=== PATIENT | female | born 1925 | race Caucasian/White ===

== ENCOUNTER 2016-05-19 11:02 | Emergency (ER) | payer OTHER, MEDICARE ==
[2016-05-19 11:16] VITALS: RESP 18; O2SAT 92
--- NOTE | 2016-05-19 11:54 | EDPHY ---
H & P Time Seen by Provider: 05/19/16 11:03 HPI/ROS: CHIEF COMPLAINT: left breast bruise HISTORY OF PRESENT ILLNESS: 89-year-old female presents to the emergency department by ambulance from her [facility] with a bruise to her left breast. Patient reports she does not regularly look at her breasts, she was sitting down to go to the bathroom and lifted up her nightgown noticed in the mirror across from her bruising to her left breast. Patient reports she does sleep on her right side and back, she denies trauma, no numbness or tingling to her arms , no shortness of breath or chest pain. Patient reports she bruises easily, she takes Pradaxa and 81 mg of aspirin daily. Patient has a pacemaker and has atrial fibrillation. Patient reports no pain, has no complaints. Smoking Status: Never smoked Physical Exam: Physical Exam Gen: Alert and Oriented, NAD HEENT: PERRL, moist mucous membranes NECK: no meningismus CV: Regular rate, irregular rhythm PULM: CTAB, no wheezes ABDOMEN: soft, non tender to palpation, BS present, abdominal distention normal per patient and fdc BACK: No CVA tenderness NEURO: Neurologically grossly intact EXTREMITIES: normal appearing SKIN: left breast with ecchymosis just below nipple and down to where breast meets chest wall, 3cm x 5cm area. Non tender, no fluctuance, no swelling, no break in skin. PSYCH: answers questions appropriately. Constitutional: Initial Vital Signs Temperature (C) 36.4 C 05/19/16 11:05 Heart Rate 70 05/19/16 11:05 Respiratory Rate 18 05/19/16 11:05 Blood Pressure 119/68 05/19/16 11:05 O2 Sat (%) 92 05/19/16 11:05 O2 Delivery Mode Room Air Allergies/Adverse Reactions: No Known Allergies Allergy (Verified 05/19/16 11:13) Home Medications: Medication Instructions Recorded Ascorbic Acid [Vitamin C 500 mg 500 mg PO DAILY 04/17/13 (*)] Aspirin EC [Aspirin EC 81 mg (*)] 81 mg PO Q2D 04/17/13 Calcium Carbonate [CALCIUM 1,000 mg PO BID 04/17/13 CARBONATE] Dabigatran Etexilate Mesyl 150 mg PO BID 04/17/13 [Pradaxa 150 MG (*)] Docusate Sodium [Colace 100 MG (*)] 100 mg PO DAILY 04/17/13 Furosemide [Lasix 20 MG (*)] 20 mg PO DAILY 04/17/13 Ketotifen Fumarate [Zaditor] 1 drop EACHEYE BID 04/17/13 Linaclotide [Linzess] 145 mcg PO DAILYAC 04/17/13 Magnesium Oxide 250 mg PO DAILY 04/17/13 Multivitamins [Multivitamin (*)] 1 each PO DAILY 04/17/13 metFORMIN HCL [Glucophage 500 mg 500 mg PO BIDMEAL 04/17/13 (*)] Cholecalciferol Vit D3 [Vitamin D3 1,000 units PO DAILY 12/11/13 (*)] Clobetasol 0.05% [Temovate Cream] 1 esha TP BID 12/11/13 DILTIAZEM HCL [DILTIAZEM 24HR ER] 240 mg PO DAILY 12/11/13 Digoxin [Lanoxin 0.25 mg] 0.25 mg PO DAILY 12/11/13 Lisinopril [Zestril 2.5 mg (*)] 2.5 mg PO DAILY 12/11/13 Loratadine [Claritin 10 mg] 10 mg PO DAILY 12/11/13 Triamcinolone Acetonide [Nasacort] 2 spray NS DAILY PRN 12/11/13 Albuterol [Proventil Neb] 3 ml IH Q2 PRN #0 deyvial 12/21/13 Furosemide [Lasix 20 MG (*)] 20 mg PO DAILY #0 tab 12/21/13 Insulin Glargine [Lantus 100 8 units SC HS #0 ml 12/21/13 UNITS/ML (*)] Insulin Lispro [humALOG LISPRO 100 4 unit SC DAILY@0800 #0 unit 12/21/13 units/ml (*)] Insulin Lispro [humALOG LISPRO 100 5 unit SC DAILY@1200 #0 unit 12/21/13 units/ml (*)] Insulin Lispro [humALOG LISPRO 100 5 unit SC DAILY@1800 #0 unit 12/21/13 units/ml (*)] Ipratropium/Albuterol [Duoneb (*)] 3 ml IH Q6 #0 deyvial 12/21/13 Dabigatran Etexilate Mesyl 150 mg PO BID 05/19/16 [Pradaxa 150 MG (*)] MDM/Departure - [facility] ED Course/Re-evaluation: Patient abdominal distention, she reports this is normal for her, it is nontender to palpation, when contacting the fdc, they report that this is normal for her since her admission to the [facility] in 2012. She has no complaints. Patient will be discharged with a diagnosis of contusion to left breast. I am not concerned for cellulitis, infection, mass. This appears to be a few days old as there is some green color to the perimeter of the bruise indicating this could be a few days old. She is nontender, no fluctuance, warmth, she is afebrile. Patient is comfortable with this plan. She has been given return precautions. - Depart Disposition: Home, Routine, Self-Care Clinical Impression: Bruise of breast Condition: Good Instructions: Contusion in Adults (ED) Additional Instructions: Ice to your breast several times per day for 10 minutes. Follow up with your primary care doctor on Saturday for re-evaluation. Return to the Emergency Department for any pain, fevers, worsening symptoms. Referrals: Patient,NotPresent [Primary Care Provider] - As per Instructions
[2016-05-19 13:00] VITALS: BP 118/59; PULSE 80; TEMP 98.1
== END 2016-05-19 13:00 | disposition home or self-care (01) ==
LOC: EDUNIT#
DX: R58 Hemorrhage, not elsewhere classified (principal); Z79.4 Long term (current) use of insulin; Z79.82 Long term (current) use of aspirin

== ENCOUNTER 2016-10-05 18:53 | Emergency (ER) | payer OTHER, MEDICARE ==
--- NOTE | 2016-10-05 18:53 | EDPHY ---
H & P Time Seen by Provider: 10/05/16 18:53 HPI/ROS: CHIEF COMPLAINT: Evaluation after a fall HISTORY OF PRESENT ILLNESS: Patient caught her foot on a rug and fell landing on sitting position on the rug at her living facility. She is on Pradaxa and was transported for evaluation. She does not have a headache but she has a little bit of pain. No loss of consciousness and extremity or hip pain. Did not have syncope. Remembers the event. No weakness or numbness in arms or legs. REVIEW OF SYSTEMS: Eye: no change in vision ENT: no sore throat Cardiac: no chest pain or syncope Pulmonary: no cough or SOB Abdomen: no vomiting, diarrhea, abdominal pain Musculoskeletal: HPI, no back pain Skin: no rash Neuro: no headache Constitutional: no fever : no urinary symptoms A comprehensive 10 point review of systems is otherwise negative aside from elements mentioned in the history of present illness. PAST MEDICAL HISTORY: Includes coronary artery disease, stroke, atrial fibrillation, colon cancer, diabetes, hypertension, hypercholesterolemia, pacemaker. Social history: Lives at [facility] in assisted living General Appearance: Alert and conversant, cooperative. Eyes: No scleral icterus. ENT, Mouth: Normal mucous membranes. Respiratory: Normal respiratory effort, breath sounds equal, lungs are clear to auscultation. Cardiovascular: Regular rate and rhythm. Gastrointestinal: Abdomen is soft and non tender. Neurological: Alert and oriented x3. Normally conversant. Face symmetric, normal movement and sensation in all extremities. Skin: Warm and dry, no rashes. Musculoskeletal: No peripheral edema and no joint swelling. Slight right-sided lower neck pain but no thoracic or lumbar spine tenderness. No hip pain with rotation or axial loading. No other extremity tenderness. Psychiatric: Not agitated. Emergency Department course/MDM: Plan for head and cervical spine CT, discharge if negative. 2013: CT head and neck per [place] shows no acute traumatic injury. Patient cleared clinically at this time. Constitutional: Initial Vital Signs Temperature (C) 36.6 C 10/05/16 19:04 Heart Rate 76 10/05/16 19:04 Respiratory Rate 18 10/05/16 19:04 Blood Pressure 126/61 H 10/05/16 19:04 O2 Sat (%) 92 10/05/16 19:04 O2 Delivery Mode Room Air Allergies/Adverse Reactions: No Known Allergies Allergy (Verified 05/19/16 11:13) Home Medications: Medication Instructions Recorded Ascorbic Acid [Vitamin C 500 mg 500 mg PO DAILY 04/17/13 (*)] Aspirin EC [Aspirin EC 81 mg (*)] 81 mg PO Q2D 04/17/13 Calcium Carbonate [CALCIUM 1,000 mg PO BID 04/17/13 CARBONATE] Dabigatran Etexilate Mesyl 150 mg PO BID 04/17/13 [Pradaxa 150 MG (*)] Docusate Sodium [Colace 100 MG (*)] 100 mg PO DAILY 04/17/13 Furosemide [Lasix 20 MG (*)] 20 mg PO DAILY 04/17/13 Ketotifen Fumarate [Zaditor] 1 drop EACHEYE BID 04/17/13 Linaclotide [Linzess] 145 mcg PO DAILYAC 04/17/13 Magnesium Oxide 250 mg PO DAILY 04/17/13 Multivitamins [Multivitamin (*)] 1 each PO DAILY 04/17/13 metFORMIN HCL [Glucophage 500 mg 500 mg PO BIDMEAL 04/17/13 (*)] Cholecalciferol Vit D3 [Vitamin D3 1,000 units PO DAILY 12/11/13 (*)] Clobetasol 0.05% [Temovate Cream] 1 esha TP BID 12/11/13 DILTIAZEM HCL [DILTIAZEM 24HR ER] 240 mg PO DAILY 12/11/13 Digoxin [Lanoxin 0.25 mg] 0.25 mg PO DAILY 12/11/13 Lisinopril [Zestril 2.5 mg (*)] 2.5 mg PO DAILY 12/11/13 Loratadine [Claritin 10 mg] 10 mg PO DAILY 12/11/13 Triamcinolone Acetonide [Nasacort] 2 spray NS DAILY PRN 12/11/13 Albuterol [Proventil Neb] 3 ml IH Q2 PRN #0 deyvial 12/21/13 Furosemide [Lasix 20 MG (*)] 20 mg PO DAILY #0 tab 12/21/13 Insulin Glargine [Lantus 100 8 units SC HS #0 ml 12/21/13 UNITS/ML (*)] Insulin Lispro [humALOG LISPRO 100 4 unit SC DAILY@0800 #0 unit 12/21/13 units/ml (*)] Insulin Lispro [humALOG LISPRO 100 5 unit SC DAILY@1200 #0 unit 12/21/13 units/ml (*)] Insulin Lispro [humALOG LISPRO 100 5 unit SC DAILY@1800 #0 unit 12/21/13 units/ml (*)] Ipratropium/Albuterol [Duoneb (*)] 3 ml IH Q6 #0 deyvial 12/21/13 Dabigatran Etexilate Mesyl 150 mg PO BID 05/19/16 [Pradaxa 150 MG (*)] Medical Decision Making - Diagnostics Imaging Results: Imaging Impressions Head CT 10/05/16 19:08 Impression: 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 2. Negative for intracranial hemorrhage. Report telephoned to Dr. Daryl Britt at 2000 hours. Departure - Departure Disposition: Home, Routine, Self-Care Clinical Impression: Neck strain Qualifiers: Encounter type: initial encounter Qualified Code(s): S16.1XXA - Strain of muscle, fascia and tendon at neck level, initial encounter Condition: Good Instructions: Cervical Strain (ED), Head Injury (ED) Referrals: Patient,NotPresent [Unknown] - As per Instructions Tom León MD [Medical Doctor] - As per Instructions
[2016-10-05 21:22] VITALS: BP 128/55; PULSE 73; RESP 16; TEMP 97.7; O2SAT 96
== END 2016-10-05 21:36 | disposition home or self-care (01) ==
LOC: EDUNIT#
DX: S16.1XXA Strain of muscle, fascia and tendon at neck level, initial encounter (principal); I25.10 Atherosclerotic heart disease of native coronary artery without angina pectoris; I10 Essential (primary) hypertension; E11.9 Type 2 diabetes mellitus without complications; Z95.0 Presence of cardiac pacemaker; Z79.82 Long term (current) use of aspirin; Z79.84 Long term (current) use of oral hypoglycemic drugs; Z79.4 Long term (current) use of insulin; Z85.038 Personal history of other malignant neoplasm of large intestine; W19.XXXA Unspecified fall, initial encounter; Y92.89 Other specified places as the place of occurrence of the external cause

== ENCOUNTER 2017-01-05 17:46 | Inpatient (IN) | payer MEDICARE, OTHER ==
[2017-01-05] MEDS ORDERED: NS 1,000 ML IV ONE (17:54)
--- NOTE | 2017-01-05 17:57 | EDPHY ---
H & P HPI/ROS: HPI CHIEF COMPLAINT: Fall, left shoulder pain, left elbow pain HISTORY OF PRESENT ILLNESS: Patient very pleasant 89-year-old female she has significant past medical history for AFib, hypertension she presents emergency room from her independent living at the [facility] on where she sustained a fall 2 days ago. Since then she has had significant shoulder pain left elbow pain. She uses a walker to ambulate and according to staff there in EMS she is unable to ambulate due to having 1 arm down. She denies any chest pain or headache. Denies neck pain main complaint is left shoulder pain. Declining pain medicine. Past Medical History: Hypertension, AFib, coronary artery disease, diabetes, stroke, hyperlipidemia, pacemaker Past Surgical History: No recent surgery, left chest pacemaker Social History: Lives at the [facility] Family History: Noncontributory ROS REVIEW OF SYSTEMS: A comprehensive 10 point review of systems is otherwise negative aside from elements mentioned in the history of present illness. Exam Constitutional appears elderly, appears well nontoxic, triage nursing summary reviewed, vital signs reviewed, awake/alert. Eyes normal conjunctivae and sclera, EOMI, PERRLA. HENT normal inspection, atraumatic, moist mucus membranes, no epistaxis, neck supple/ no meningismus, no raccoon eyes. Respiratory clear to auscultation bilaterally, normal breath sounds, no respiratory distress, no wheezing. Cardiovascular rate normal, regular rhythm, no murmur, no edema, distal pulses normal. Gastrointestinal soft, non-tender, no rebound, no guarding, normal bowel sounds, no distension, no pulsatile mass. Genitourinary no CVA tenderness. Musculoskeletal left shoulder: Significant tenderness to palpation over the left shoulder, additionally tender palpation over the left elbow with range of motion. Left arm is neurovascularly intact. Good distal pulse. Warm extremity , good cap refill. no midline vertebral tenderness, full range of motion, no calf swelling, no tenderness of extremities, no meningismus, good pulses, neurovascularly intact. Skin pink, warm, & dry, no rash, skin atraumatic. Neurologic awake, alert and oriented x 3, AAOx3, moves all 4 extremities equally, motor intact, sensory intact, CN II-XII intact, normal cerebellar, normal vision, normal speech. Psychiatric normal mood/affect. Heme/Lymph/Immune no lymphadenopathy. Differential Diagnosis: Includes but is not limited to in a particular order shoulder contusion, shoulder fracture, elbow contusion, Medical Decision Making: Plan for this patient x-ray left shoulder, x-ray left elbow. Basic blood work. Gentle IV hydration patient most likely need to be admitted as she is unable to care for herself. Re-evaluation: EKG interpretation by me on record in [employer] system. Impression time of EKG 180 this is a paced rhythm at a rate of 91. Otherwise I do not appreciate acute ischemic changes. Very similar to previous EKG dated 12/11/2013. Patient's chest x-ray reviewed by myself. Cardiomegaly present. Pacemaker appropriate. Left shoulder x-ray shows no acute fracture. Left elbow x-ray shows a radial head fracture. Patient will be splinted posterior long-arm slab. Patient be admitted to the hospitalist service as she is unable to care for self with 1 arm. Fall risk. This patient's left arm was splinted, posterior long-arm splint. Reason for the splint immobilization of the left elbow given left elbow fracture. Additionally this patient be admitted to the hospitalist service that she cannot ambulate safely by herself. She uses a walker to ambulate. She now has 1 arm in a splint. She is 89 years of age. She is a fall risk. Source: Patient, EMS - Medical/Surgical History Hx Asthma: No Hx Chronic Respiratory Disease: Yes Hx Diabetes: Yes Hx Cardiac Disease: Yes Hx Renal Disease: No Hx Cirrhosis: No Hx Alcoholism: No Hx HIV/AIDS: No Hx Splenectomy or Spleen Trauma: No Other PMH: CAD, Afib, Colon Ca., Diabetes, HTN, High Cholesterol, CHF, pacemaker - Social History Smoking Status: Never smoked Constitutional: Initial Vital Signs Temperature (C) 36.3 C 01/05/17 17:46 Heart Rate 82 01/05/17 17:46 Respiratory Rate 16 01/05/17 17:46 Blood Pressure 124/75 H 01/05/17 17:46 O2 Sat (%) 95 01/05/17 17:46 O2 Delivery Mode Nasal Cannula O2 (L/minute) 2 Allergies/Adverse Reactions: lanolin Allergy (Mild, Unverified 01/05/17 21:35) Rash wool Allergy (Mild, Uncoded 01/05/17 21:35) Rash Home Medications: Medication Instructions Recorded Ascorbic Acid [Vitamin C 500 mg 500 mg PO HS 04/17/13 (*)] Aspirin EC [Aspirin EC 81 mg (*)] 81 mg PO Q2D@04/17/13 Calcium Carbonate [CALCIUM 1,000 mg PO BID@04/17/13 CARBONATE] Dabigatran Etexilate Mesyl 150 mg PO BID 04/17/13 [Pradaxa 150 MG (*)] Docusate Sodium [Colace 100 MG (*)] 100 mg PO BID 04/17/13 Ketotifen Fumarate [Zaditor] 1 drop EACHEYE BID 04/17/13 Linaclotide [Linzess] 145 mcg PO DAILY 04/17/13 Magnesium Oxide 250 mg PO DAILY 04/17/13 Multivitamins [Multivitamin (*)] 1 each PO DAILY@04/17/13 metFORMIN HCL [Glucophage 500 mg 1,000 mg PO BIDMEAL 04/17/13 (*)] Cholecalciferol Vit D3 [Vitamin D3 1,000 units PO HS 12/11/13 (*)] Clobetasol 0.05% [Temovate Cream] 1 esha TP BID PRN 12/11/13 DILTIAZEM HCL [DILTIAZEM 24HR ER] 240 mg PO DAILY 12/11/13 Digoxin [Lanoxin 0.25 mg] 0.25 mg PO DAILY 12/11/13 Lisinopril [Zestril 2.5 mg (*)] 2.5 mg PO DAILY 12/11/13 Loratadine [Claritin 10 mg] 10 mg PO DAILY@17 12/11/13 Furosemide [Lasix 20 MG (*)] 20 mg PO DAILY #0 tab 12/21/13 Acetaminophen [Tylenol ES 500 mg 1,000 mg PO Q6 PRN 01/05/17 (*)] Azelastine [Astelin Nasal Newberry 1 sprays EACHNARE BID 01/05/17 (RX)] Glimepiride 4 mg PO DAILY 01/05/17 Ibuprofen [Motrin (*)] 400 mg PO BID PRN 01/05/17 Mirabegron [Myrbetriq] 50 mg PO DAILY@01/05/17 Potassium Cl [Klor-Con 20 meq (*)] 20 meq PO DAILY 01/05/17 Triamcinolone 0.1% [Triamcinolone 1 esha TP BID PRN 01/05/17 0.1% Cream] sitaGLIPtin PHOSPHATE [Januvia 100 100 mg PO DAILY 01/05/17 MG (*)] Medical Decision Making - Data Points Laboratory Results: Laboratory Results 01/05/17 18:08 01/05/17 18:08 Medications Given: Acetaminophen (Tylenol) 650 mg PO Q4HRS PRN PRN Reason: Pain, Mild/Fever, Can Take PO Stop: 07/04/17 20:56 Last Admin: 01/06/17 10:26 Dose: 650 mg Azelastine HCl (Astelin) 1 sprays EACHNARE BID [facility] Stop: 07/04/17 20:59 Last Admin: 01/06/17 10:40 Dose: 1 spray Dabigatran (Pradaxa) 150 mg PO BID [facility]IAM Stop: 07/04/17 20:59 Last Admin: 01/06/17 10:19 Dose: 150 mg Digoxin (Lanoxin) 250 mcg PO DAILY MIRIAM Stop: 07/05/17 08:59 Last Admin: 01/06/17 10:21 Dose: 250 mcg Diltiazem HCl (Dilacor Xr) 240 mg PO DAILY [facility] Stop: 07/05/17 08:59 Last Admin: 01/06/17 10:22 Dose: 240 mg Docusate Sodium (Colace) 100 mg PO BID MIRIAM Stop: 07/04/17 20:59 Last Admin: 01/06/17 10:24 Dose: 100 mg Furosemide (Lasix) 20 mg PO DAILY MIRIAM Stop: 07/05/17 08:59 Last Admin: 01/06/17 10:24 Dose: 20 mg Glimepiride (Amaryl) 4 mg PO DAILY MIRIAM Stop: 07/05/17 08:59 Last Admin: 01/06/17 10:24 Dose: 4 mg Lisinopril (Zestril) 2.5 mg PO DAILY [facility] Stop: 07/05/17 08:59 Last Admin: 01/06/17 10:24 Dose: 2.5 mg Magnesium Oxide (Magnesium Oxide) 200 mg PO DAILY [facility] Stop: 07/05/17 08:59 Last Admin: 01/06/17 10:25 Dose: 200 mg Metformin HCl (Glucophage) 1,000 mg PO BIDMEAL [facility] Stop: 07/05/17 07:59 Last Admin: 01/06/17 10:36 Dose: 1,000 mg Miscellaneous Medication (Ketotifen Fumarate [Zaditor]) 1 drop EACHEYE BID MIRIAM Stop: 07/04/17 20:59 Last Admin: 01/06/17 10:41 Dose: Not Given Miscellaneous Medication (Linaclotide [Linzess]) 145 mcg PO DAILY [facility]IRIAM Stop: 07/05/17 08:59 Last Admin: 01/06/17 10:41 Dose: Not Given Potassium Chloride (Klor-Con) 20 meq PO DAILY [facility]IR[facility] Stop: 07/05/17 08:59 Last Admin: 01/06/17 10:25 Dose: 20 meq Sitagliptin Phosphate (Januvia) 100 mg PO DAILY [facility] Stop: 07/05/17 08:59 Last Admin: 01/06/17 10:26 Dose: 100 mg Discontinued Medications Sodium Chloride (Ns) 1,000 mls @ 0 mls/hr IV EDNOW ONE; Wide Open PRN Reason: Protocol Stop: 01/05/17 17:55 Last Admin: 01/05/17 18:16 Dose: 1,000 mls Departure - Departure Disposition: [facility] Inpatient Acute Clinical Impression: Elbow fracture, left Qualifiers: Encounter type: initial encounter Fracture type: closed Qualified Code(s): S42.402A - Unspecified fracture of lower end of left humerus, initial encounter for closed fracture Condition: Fair
--- NOTE | 2017-01-05 17:57 | EDPHY ---
H & P HPI/ROS: HPI CHIEF COMPLAINT: Fall, left shoulder pain, left elbow pain HISTORY OF PRESENT ILLNESS: Patient very pleasant 89-year-old female she has significant past medical history for AFib, hypertension she presents emergency room from her independent living at the [facility] on where she sustained a fall 2 days ago. Since then she has had significant shoulder pain left elbow pain. She uses a walker to ambulate and according to staff there in EMS she is unable to ambulate due to having 1 arm down. She denies any chest pain or headache. Denies neck pain main complaint is left shoulder pain. Declining pain medicine. Past Medical History: Hypertension, AFib, coronary artery disease, diabetes, stroke, hyperlipidemia, pacemaker Past Surgical History: No recent surgery, left chest pacemaker Social History: Lives at the [facility] Family History: Noncontributory ROS REVIEW OF SYSTEMS: A comprehensive 10 point review of systems is otherwise negative aside from elements mentioned in the history of present illness. Exam Constitutional appears elderly, appears well nontoxic, triage nursing summary reviewed, vital signs reviewed, awake/alert. Eyes normal conjunctivae and sclera, EOMI, PERRLA. HENT normal inspection, atraumatic, moist mucus membranes, no epistaxis, neck supple/ no meningismus, no raccoon eyes. Respiratory clear to auscultation bilaterally, normal breath sounds, no respiratory distress, no wheezing. Cardiovascular rate normal, regular rhythm, no murmur, no edema, distal pulses normal. Gastrointestinal soft, non-tender, no rebound, no guarding, normal bowel sounds, no distension, no pulsatile mass. Genitourinary no CVA tenderness. Musculoskeletal left shoulder: Significant tenderness to palpation over the left shoulder, additionally tender palpation over the left elbow with range of motion. Left arm is neurovascularly intact. Good distal pulse. Warm extremity , good cap refill. no midline vertebral tenderness, full range of motion, no calf swelling, no tenderness of extremities, no meningismus, good pulses, neurovascularly intact. Skin pink, warm, & dry, no rash, skin atraumatic. Neurologic awake, alert and oriented x 3, AAOx3, moves all 4 extremities equally, motor intact, sensory intact, CN II-XII intact, normal cerebellar, normal vision, normal speech. Psychiatric normal mood/affect. Heme/Lymph/Immune no lymphadenopathy. Differential Diagnosis: Includes but is not limited to in a particular order shoulder contusion, shoulder fracture, elbow contusion, Medical Decision Making: Plan for this patient x-ray left shoulder, x-ray left elbow. Basic blood work. Gentle IV hydration patient most likely need to be admitted as she is unable to care for herself. Re-evaluation: EKG interpretation by me on record in [employer] system. Impression time of EKG 180 this is a paced rhythm at a rate of 91. Otherwise I do not appreciate acute ischemic changes. Very similar to previous EKG dated 12/11/2013. Patient's chest x-ray reviewed by myself. Cardiomegaly present. Pacemaker appropriate. Left shoulder x-ray shows no acute fracture. Left elbow x-ray shows a radial head fracture. Patient will be splinted posterior long-arm slab. Patient be admitted to the hospitalist service as she is unable to care for self with 1 arm. Fall risk. This patient's left arm was splinted, posterior long-arm splint. Reason for the splint immobilization of the left elbow given left elbow fracture. Additionally this patient be admitted to the hospitalist service that she cannot ambulate safely by herself. She uses a walker to ambulate. She now has 1 arm in a splint. She is 89 years of age. She is a fall risk. Source: Patient, EMS - Medical/Surgical History Hx Asthma: No Hx Chronic Respiratory Disease: Yes Hx Diabetes: Yes Hx Cardiac Disease: Yes Hx Renal Disease: No Hx Cirrhosis: No Hx Alcoholism: No Hx HIV/AIDS: No Hx Splenectomy or Spleen Trauma: No Other PMH: CAD, Afib, Colon Ca., Diabetes, HTN, High Cholesterol, CHF, pacemaker - Social History Smoking Status: Never smoked Constitutional: Initial Vital Signs Temperature (C) 36.3 C 01/05/17 17:46 Heart Rate 82 01/05/17 17:46 Respiratory Rate 16 01/05/17 17:46 Blood Pressure 124/75 H 01/05/17 17:46 O2 Sat (%) 95 01/05/17 17:46 O2 Delivery Mode Nasal Cannula O2 (L/minute) 2 Allergies/Adverse Reactions: lanolin Allergy (Mild, Unverified 01/05/17 21:35) Rash wool Allergy (Mild, Uncoded 01/05/17 21:35) Rash Home Medications: Medication Instructions Recorded Ascorbic Acid [Vitamin C 500 mg 500 mg PO HS 04/17/13 (*)] Aspirin EC [Aspirin EC 81 mg (*)] 81 mg PO Q2D@04/17/13 Calcium Carbonate [CALCIUM 1,000 mg PO BID@04/17/13 CARBONATE] Dabigatran Etexilate Mesyl 150 mg PO BID 04/17/13 [Pradaxa 150 MG (*)] Docusate Sodium [Colace 100 MG (*)] 100 mg PO BID 04/17/13 Ketotifen Fumarate [Zaditor] 1 drop EACHEYE BID 04/17/13 Linaclotide [Linzess] 145 mcg PO DAILY 04/17/13 Magnesium Oxide 250 mg PO DAILY 04/17/13 Multivitamins [Multivitamin (*)] 1 each PO DAILY@04/17/13 metFORMIN HCL [Glucophage 500 mg 1,000 mg PO BIDMEAL 04/17/13 (*)] Cholecalciferol Vit D3 [Vitamin D3 1,000 units PO HS 12/11/13 (*)] Clobetasol 0.05% [Temovate Cream] 1 esha TP BID PRN 12/11/13 DILTIAZEM HCL [DILTIAZEM 24HR ER] 240 mg PO DAILY 12/11/13 Digoxin [Lanoxin 0.25 mg] 0.25 mg PO DAILY 12/11/13 Lisinopril [Zestril 2.5 mg (*)] 2.5 mg PO DAILY 12/11/13 Loratadine [Claritin 10 mg] 10 mg PO DAILY@17 12/11/13 Furosemide [Lasix 20 MG (*)] 20 mg PO DAILY #0 tab 12/21/13 Acetaminophen [Tylenol ES 500 mg 1,000 mg PO Q6 PRN 01/05/17 (*)] Azelastine [Astelin Nasal [place] 1 sprays EACHNARE BID 01/05/17 (RX)] Glimepiride 4 mg PO DAILY 01/05/17 Ibuprofen [Motrin (*)] 400 mg PO BID PRN 01/05/17 Mirabegron [Myrbetriq] 50 mg PO DAILY@01/05/17 Potassium Cl [Klor-Con 20 meq (*)] 20 meq PO DAILY 01/05/17 Triamcinolone 0.1% [Triamcinolone 1 esha TP BID PRN 01/05/17 0.1% Cream] sitaGLIPtin PHOSPHATE [Januvia 100 100 mg PO DAILY 01/05/17 MG (*)] Medical Decision Making - Data Points Laboratory Results: Laboratory Results 01/05/17 18:08 01/05/17 18:08 Medications Given: Acetaminophen (Tylenol) 650 mg PO Q4HRS PRN PRN Reason: Pain, Mild/Fever, Can Take PO Stop: 07/04/17 20:56 Last Admin: 01/06/17 10:26 Dose: 650 mg Azelastine HCl (Astelin) 1 sprays EACHNARE BID [facility] Stop: 07/04/17 20:59 Last Admin: 01/06/17 10:40 Dose: 1 spray Dabigatran (Pradaxa) 150 mg PO BID MIRIAM Stop: 07/04/17 20:59 Last Admin: 01/06/17 10:19 Dose: 150 mg Digoxin (Lanoxin) 250 mcg PO DAILY MIRIAM Stop: 07/05/17 08:59 Last Admin: 01/06/17 10:21 Dose: 250 mcg Diltiazem HCl (Dilacor Xr) 240 mg PO DAILY [facility] Stop: 07/05/17 08:59 Last Admin: 01/06/17 10:22 Dose: 240 mg Docusate Sodium (Colace) 100 mg PO BID MIRIAM Stop: 07/04/17 20:59 Last Admin: 01/06/17 10:24 Dose: 100 mg Furosemide (Lasix) 20 mg PO DAILY MIRIAM Stop: 07/05/17 08:59 Last Admin: 01/06/17 10:24 Dose: 20 mg Glimepiride (Amaryl) 4 mg PO DAILY MIRIAM Stop: 07/05/17 08:59 Last Admin: 01/06/17 10:24 Dose: 4 mg Lisinopril (Zestril) 2.5 mg PO DAILY [facility] Stop: 07/05/17 08:59 Last Admin: 01/06/17 10:24 Dose: 2.5 mg Magnesium Oxide (Magnesium Oxide) 200 mg PO DAILY [facility] Stop: 07/05/17 08:59 Last Admin: 01/06/17 10:25 Dose: 200 mg Metformin HCl (Glucophage) 1,000 mg PO BIDMEAL [facility] Stop: 07/05/17 07:59 Last Admin: 01/06/17 10:36 Dose: 1,000 mg Miscellaneous Medication (Ketotifen Fumarate [Zaditor]) 1 drop EACHEYE BID MIRIMA Stop: 07/04/17 20:59 Last Admin: 01/06/17 10:41 Dose: Not Given Miscellaneous Medication (Linaclotide [Linzess]) 145 mcg PO DAILY MIRIAM Stop: 07/05/17 08:59 Last Admin: 01/06/17 10:41 Dose: Not Given Potassium Chloride (Klor-Con) 20 meq PO DAILY MIRIAM Stop: 07/05/17 08:59 Last Admin: 01/06/17 10:25 Dose: 20 meq Sitagliptin Phosphate (Januvia) 100 mg PO DAILY MIRIAM Stop: 07/05/17 08:59 Last Admin: 01/06/17 10:26 Dose: 100 mg Discontinued Medications Sodium Chloride (Ns) 1,000 mls @ 0 mls/hr IV EDNOW ONE; Wide Open PRN Reason: Protocol Stop: 01/05/17 17:55 Last Admin: 01/05/17 18:16 Dose: 1,000 mls Departure - Departure Disposition: [facility] Inpatient Acute Clinical Impression: Elbow fracture, left Qualifiers: Encounter type: initial encounter Fracture type: closed Qualified Code(s): S42.402A - Unspecified fracture of lower end of left humerus, initial encounter for closed fracture Condition: Fair
--- NOTE | 2017-01-05 18:13 | CPEKG ---
Heart Rate: 91 RR Interval: 659 QRSD Interval: 134 QT Interval: 384 QTC Interval: 473 QRS [place]: -73 T Wave [place]: 101 EKG Severity - ABNORMAL ECG - EKG Impression: AFIB/FLUT AND V-PACED COMPLEXES EKG Impression: IVCD, CONSIDER ATYPICAL RBBB EKG Impression: LVH WITH SECONDARY REPOLARIZATION ABNORMALITY Electronically Signed By: Beni Zayas 06-Jan-2017 03:00:34
--- NOTE | 2017-01-05 18:13 | CPEKG ---
Heart Rate: 91 RR Interval: 659 QRSD Interval: 134 QT Interval: 384 QTC Interval: 473 QRS [place]: -73 T Wave [place]: 101 EKG Severity - ABNORMAL ECG - EKG Impression: AFIB/FLUT AND V-PACED COMPLEXES EKG Impression: IVCD, CONSIDER ATYPICAL RBBB EKG Impression: LVH WITH SECONDARY REPOLARIZATION ABNORMALITY Electronically Signed By: Beni Zayas 06-Jan-2017 03:00:34
[2017-01-05 18:29] LABS: PLATELET COUNT 281 10^3/uL (150-400)
[2017-01-05 18:40] LABS: INR 1.81 (0.83-1.16); PROTIME(PATIENT) 21.1 SEC (12.0-15.0)
[2017-01-05] MEDS ORDERED: ONDANSETRON DISINTEGRATING 4 MG TAB PO PRN (20:57)
[2017-01-05] MEDS ORDERED: ONDANSETRON 4 MG/2 ML VIAL IVP PRN (20:57)
[2017-01-05] MEDS ORDERED: OXYCODONE/APAP 5/325 TAB PO PRN (20:57)
[2017-01-05] MEDS ORDERED: TRIAMCINOLONE 0.1% 15 GM CRTUBE TP PRN (20:58)
[2017-01-05] MEDS: DABIGATRAN ETEXILATE MESYL 150 MG CAP PO SCH (21:36)
[2017-01-05] MEDS: DOCUSATE SODIUM 100 MG CAP PO SCH (21:36)
[2017-01-05] MEDS: AZELASTINE NASAL MDI EACHNARE SCH (21:38)
[2017-01-05] MEDS: Ketotifen Fumarate [Zaditor] 1 DROP EACHEYE SCH (21:39)
--- NOTE | 2017-01-06 00:04 | GHP ---
[f rep st] HISTORY AND PHYSICAL DATE OF ADMISSION: 01/05/2017 CHIEF COMPLAINT: Fall with left arm pain. HISTORY OF PRESENT ILLNESS: This is an 89-year-old female with a history of atrial fibrillation, as well as type 2 diabetes and other medical problems. She lives at [facility]. She usually uses a w alker to ambulate. She states that she fell 2 days ago and has been having significant pain in her s houlder and elbow. She has been unable to ambulate. She believes that she tripped and did not have any type of syncopal episode. REVIEW OF SYSTEMS: A 10-point review of systems was obtained, and other than stated is negative. PAST MEDICAL HISTORY: 1. Atrial fibrillation. 2. Hypertension. 3. Type 2 diabetes. 4. Previous CVA. 5. Hyperlipidemia. 6. Pacemaker. MEDICATIONS: Reviewed. SOCIAL HISTORY: Lives at [facility]. No smoking. FAMILY HISTORY: Reviewed and noncontributory. PHYSICAL EXAMINATION: VITAL SIGNS: Afebrile, blood pressure is 114/74, heart rate 75, oxygen satura tion 97% on room air. GENERAL: Patient is well developed, thin, no apparent distress. HEENT: Yuli cteric sclerae. Extraocular movements intact. Moist mucous membranes. NECK: Supple. No thyromega ly. LUNGS: Good effort. Clear to auscultation bilaterally. CARDIOVASCULAR: Regular rate and rhyt hm. No murmurs, gallops. ABDOMEN: Positive bowel sounds. Soft, nontender, nondistended. No hepat osplenomegaly. EXTREMITIES: 1+ edema, which is chronic. NEUROLOGIC: Alert and oriented x3. Movin g all 4 extremities. PSYCHIATRIC: Normal affect. LABORATORY DATA: White blood cell count elevated at 13, hemoglobin 10. Elbow x-ray shows a radial head fracture, which is not completely confirmed. EKG personally reviewed and interpreted. Has atrial fibrillation with paced complexes. ASSESSMENT: This is an 89-year-old female, presenting with a left elbow fracture versus contusion. PLAN: 1. Left elbow fracture versus contusion. This has been splinted. Consider getting Orthopedic Surge ry to evaluate. She will probably need to go to rehab. 2. Atrial fibrillation. Continue anticoagulation. 3. Type 2 diabetes. Continue medications. 4. Leukocytosis. Will repeat CBC in the morning. /[id number]/MODL
[2017-01-06 04:50] LABS: PLATELET COUNT 230 10^3/uL (150-400)
--- NOTE | 2017-01-06 04:51 | PDMN ---
Medical Necessity Medical necessity: C/M review: est. > 2 MN LOS for eval and TX of acute left elbow fracture versus contusion, new inability to ambulate with walker due to inability to use splinted left arm with walker, significant pain, leukocytosis, requiring possible orthopedic consult, pain management, acute inpt PT/OT, comorbid trip and fall two days prior to this admission, atrial fibrillation, type 2 diabetes, hx hypertension, hyperlipidemia, pacemaker, previous CVA per H/ P.
[2017-01-06] MEDS: DABIGATRAN ETEXILATE MESYL 150 MG CAP PO SCH ×2 (10:19→20:40)
[2017-01-06] MEDS: DIGOXIN 250 MCG TAB PO SCH (10:21)
[2017-01-06] MEDS: DILTIAZEM XR 240 MG CAP PO SCH (10:22)
[2017-01-06] MEDS: GLIMEPIRIDE 2 MG TAB PO SCH (10:24)
[2017-01-06] MEDS: FUROSEMIDE 20 MG TAB PO SCH (10:24)
[2017-01-06] MEDS: DOCUSATE SODIUM 100 MG CAP PO SCH ×2 (10:24→20:41)
[2017-01-06] MEDS: LISINOPRIL 5 MG TAB PO SCH (10:24)
[2017-01-06] MEDS: MAGNESIUM OXIDE 400 MG TAB PO SCH (10:25)
[2017-01-06] MEDS: POTASSIUM CL 20 MEQ TAB PO SCH (10:25)
[2017-01-06] MEDS: ACETAMINOPHEN 325 MG TAB PO PRN ×3 (10:26→21:18)
[2017-01-06] MEDS: metFORMIN HCL 500 MG TAB PO SCH ×2 (10:36→17:26)
[2017-01-06] MEDS: AZELASTINE NASAL MDI EACHNARE SCH ×2 (10:40→20:40)
[2017-01-06] MEDS: Linaclotide [Linzess] 145 MCG PO SCH (10:41)
[2017-01-06] MEDS: Ketotifen Fumarate [Zaditor] 1 DROP EACHEYE SCH ×2 (10:41→20:41)
--- NOTE | 2017-01-06 11:22 | HOSPPROG ---
Hospitalist Progress Note Assessment/Plan: 89y female with fall. First encounter, chart reviewed. KATHY RN and CM. #Mechanical fall uses walker #Elbow fx splint repeat xray 7-10 days #Hypoxemia acute on chronic cont supplemental o2 CXR personally reviewed, no signs of infection #Afib rate stable cont anticoagulation Should consider DC coumaddin given increase fall risk #DM II follow #Anemia no intervention no signs of bleeding #Dispo pt from [place] plan to start Hospice January 09 will arrange DC plan KATHY LUNA Subjective: Feels ok. No specific issues. Objective: Vital Signs Temp Pulse Resp BP Pulse Ox 36.8 C 98 16 124/65 H 94 01/06/17 00:00 01/06/17 10:22 01/06/17 07:22 01/06/17 10:24 01/06/17 07:22 Laboratory Results 01/06/17 04:34 01/06/17 04:34 01/05/17 01/06/17 01/07/17 05:59 05:59 05:59 Intake Total 1280 Output Total 200 Balance 1080 PT 21.1 SEC (12.0-15.0) H 01/05/17 18:08 INR 1.81 (0.83-1.16) H 01/05/17 18:08 - Physical Exam Constitutional: no apparent distress, appears nourished, not in pain Eyes: PERRL, anicteric sclera, EOMI Ears, Nose, Mouth, Throat: moist mucous membranes, hearing normal, ears appear normal Cardiovascular: irregularly irregular, tachycardia, No JVD Respiratory: no respiratory distress, no rales or rhonchi, reduced air movement Gastrointestinal: distension, No tenderness, No ascites Skin: warm, normal color, No erythema Musculoskeletal: joint tenderness, pain with ROM, generalized weakness Neurologic: No AAOx3 Psychiatric: not anxious, not encephalopathic, thought process linear ICD10 Worksheet Patient Problems: Problems Problem Status Onset Venous stasis ulcer of lower extremity Chronic Sepsis Acute Acute respiratory failure Acute Elbow fracture, left Acute
[2017-01-06] MEDS: Mirabegron [Myrbetriq] 50 MG PO SCH (16:21)
[2017-01-06] MEDS: CETIRIZINE 10 MG TAB PO SCH (16:39)
[2017-01-07] MEDS: DABIGATRAN ETEXILATE MESYL 150 MG CAP PO SCH ×2 (10:08→20:29)
[2017-01-07] MEDS: metFORMIN HCL 500 MG TAB PO SCH ×2 (10:08→18:08)
[2017-01-07] MEDS: ASPIRIN EC 81 MG TAB PO SCH (10:09)
[2017-01-07] MEDS: DOCUSATE SODIUM 100 MG CAP PO SCH ×2 (10:09→20:29)
[2017-01-07] MEDS: GLIMEPIRIDE 2 MG TAB PO SCH (10:09)
[2017-01-07] MEDS: MAGNESIUM OXIDE 400 MG TAB PO SCH (10:09)
[2017-01-07] MEDS: POTASSIUM CL 20 MEQ TAB PO SCH (10:09)
[2017-01-07] MEDS: DILTIAZEM XR 240 MG CAP PO SCH (10:10)
[2017-01-07] MEDS: FUROSEMIDE 20 MG TAB PO SCH (10:12)
[2017-01-07] MEDS: LISINOPRIL 5 MG TAB PO SCH (10:12)
[2017-01-07] MEDS: DIGOXIN 250 MCG TAB PO SCH (10:13)
[2017-01-07] MEDS: AZELASTINE NASAL MDI EACHNARE SCH ×2 (10:13→20:29)
[2017-01-07] MEDS: Ketotifen Fumarate [Zaditor] 1 DROP EACHEYE SCH ×2 (10:16→20:31)
[2017-01-07] MEDS: Linaclotide [Linzess] 145 MCG PO SCH (10:16)
--- NOTE | 2017-01-07 15:16 | HOSPPROG ---
Hospitalist Progress Note Assessment/Plan: 89y female with fall. First encounter, chart reviewed. KATHY RN and CM. #Mechanical fall uses walker #Elbow fx splint repeat xray 7-10 days #Hypoxemia acute on chronic cont supplemental o2 CXR personally reviewed, no signs of infection #Afib rate stable cont anticoagulation Should consider DC given increase fall risk #DM II follow #Abdominal distention +BM KUB ordered no tenderness #Anemia no intervention no signs of bleeding #[facility] Hospice January 09 will arrange DC plan KATYH LUNA Subjective: No specific issues. Objective: Vital Signs Temp Pulse Resp BP Pulse Ox 36.8 C 78 17 124/52 H 98 01/06/17 23:25 01/07/17 10:13 01/07/17 08:00 01/07/17 10:12 01/07/17 08:00 Laboratory Results 01/06/17 04:34 01/06/17 04:34 01/06/17 01/07/17 01/08/17 05:59 05:59 05:59 Intake Total 1280 1100 Output Total 200 1500 Balance 1080 -400 PT 21.1 SEC (12.0-15.0) H 01/05/17 18:08 INR 1.81 (0.83-1.16) H 01/05/17 18:08 - Physical Exam Constitutional: appears nourished, chronically ill appearing Eyes: PERRL, anicteric sclera Ears, Nose, Mouth, Throat: moist mucous membranes, ears appear normal Cardiovascular: No JVD, No edema Respiratory: no respiratory distress, reduced air movement Gastrointestinal: distension, No ascites Skin: warm, normal color Musculoskeletal: pain with ROM, generalized weakness Neurologic: No AAOx3 Psychiatric: not anxious, poor insight, poor judgement, poor memory ICD10 Worksheet Patient Problems: Problems Problem Status Onset Venous stasis ulcer of lower extremity Chronic Sepsis Acute Acute respiratory failure Acute Elbow fracture, left Acute
--- NOTE | 2017-01-07 15:16 | HOSPPROG ---
Hospitalist Progress Note Assessment/Plan: 89y female with fall. First encounter, chart reviewed. KATHY RN and CM. #Mechanical fall uses walker #Elbow fx splint repeat xray 7-10 days #Hypoxemia acute on chronic cont supplemental o2 CXR personally reviewed, no signs of infection #Afib rate stable cont anticoagulation Should consider DC given increase fall risk #DM II follow #Abdominal distention +BM KUB ordered no tenderness #Anemia no intervention no signs of bleeding #[facility] to [facility] Hospice January 09 will arrange DC plan KATHY LUNA Subjective: No specific issues. Objective: Vital Signs Temp Pulse Resp BP Pulse Ox 36.8 C 78 17 124/52 H 98 01/06/17 23:25 01/07/17 10:13 01/07/17 08:00 01/07/17 10:12 01/07/17 08:00 Laboratory Results 01/06/17 04:34 01/06/17 04:34 01/06/17 01/07/17 01/08/17 05:59 05:59 05:59 Intake Total 1280 1100 Output Total 200 1500 Balance 1080 -400 PT 21.1 SEC (12.0-15.0) H 01/05/17 18:08 INR 1.81 (0.83-1.16) H 01/05/17 18:08 - Physical Exam Constitutional: appears nourished, chronically ill appearing Eyes: PERRL, anicteric sclera Ears, Nose, Mouth, Throat: moist mucous membranes, ears appear normal Cardiovascular: No JVD, No edema Respiratory: no respiratory distress, reduced air movement Gastrointestinal: distension, No ascites Skin: warm, normal color Musculoskeletal: pain with ROM, generalized weakness Neurologic: No AAOx3 Psychiatric: not anxious, poor insight, poor judgement, poor memory ICD10 Worksheet Patient Problems: Problems Problem Status Onset Venous stasis ulcer of lower extremity Chronic Sepsis Acute Acute respiratory failure Acute Elbow fracture, left Acute
--- NOTE | 2017-01-07 16:20 | ASMTCMCOM ---
CM Note CM Note Notes: Pt admitted w/elbow fracture. She lives at [facility]. Was recently a pt with Nevaeh Boggs, came off and is scheduled to start back up with Jenna. Discussed w/pt's so, Baljeet([phone])- her MDPOA and he confirmed the plan for Hospice to start back up when she returns to [facility]. Spoke w/Denita from [facility] and they are ready to start service with her. She said they do not need to re-eval here at the hospital and they could see her at [facility] whenever she dc's whether that is tomorrow or saturday. Referral sent to [facility]. He is also arranging 24 hr care through [facility] which Baljeet said would be able to start this saturday. I explained to him that she may be ready for dc tomorrow but he did not seem to think the 24 hr care could start tomorrow. Also spoke w/MICHAEL Mendez at [facility]; they are fine to accept her back but 24 hr care must be in place. They do manage her meds so will need dc med list which they said must be physically signed. Their fax is [phone]. D/W Hospitalist and RN. CHERYL w/f. Date Signed: 01/07/2017 04:19 PM Electronically Signed By:Raven Warren RN
--- NOTE | 2017-01-07 16:20 | ASMTCMCOM ---
CM Note CM Note Notes: Pt admitted w/elbow fracture. She lives at [facility]. Was recently a pt with Nevae[facility] Boggs, came off and is scheduled to start back up with Jenna. Discussed w/pt's so, Baljeet([phone])- her MDPOA and he confirmed the plan for Hospice to start back up when she returns to [facility]. Spoke w/Denita from [facility] and they are ready to start service with her. She said they do not need to re-eval here at the hospital and they could see her at [facility] whenever she dc's whether that is tomorrow or saturday. Referral sent to [facility]. He is also arranging 24 hr care through [facility] which Baljeet said would be able to start this saturday. I explained to him that she may be ready for dc tomorrow but he did not seem to think the 24 hr care could start tomorrow. Also spoke w/MICHAEL Mendez at [facility]; they are fine to accept her back but 24 hr care must be in place. They do manage her meds so will need dc med list which they said must be physically signed. Their fax is [phone]. D/W Hospitalist and RN. CHERYL w/f. Date Signed: 01/07/2017 04:19 PM Electronically Signed By:Raven Warren RN
--- NOTE | 2017-01-07 16:20 | ASMTCMCOM ---
CM Note CM Note Notes: Pt admitted w/elbow fracture. She lives at [facility]. Was recently a pt with Nevaeh Boggs, came off and is scheduled to start back up with Jenna. Discussed w/pt's so, Baljeet([phone])- her MDPOA and he confirmed the plan for Hospice to start back up when she returns to [facility]. Spoke w/Denita from [facility] and they are ready to start service with her. She said they do not need to re-eval here at the hospital and they could see her at [facility] whenever she dc's whether that is tomorrow or saturday. Referral sent to [facility]. He is also arranging 24 hr care through [facility] which Baljeet said would be able to start this saturday. I explained to him that she may be ready for dc tomorrow but he did not seem to think the 24 hr care could start tomorrow. Also spoke w/MICHAEL Mendez at [facility]; they are fine to accept her back but 24 hr care must be in place. They do manage her meds so will need dc med list which they said must be physically signed. Their fax is [phone]. D/W Hospitalist and RN. CHERYL w/f. Date Signed: 01/07/2017 04:19 PM Electronically Signed By:Raven Warren RN
[2017-01-07] MEDS: Mirabegron [Myrbetriq] 50 MG PO SCH (18:05)
[2017-01-07] MEDS: CETIRIZINE 10 MG TAB PO SCH (18:09)
[2017-01-07] MEDS ORDERED: MAGNESIUM HYDROXIDE 30 ML UDCUP PO PRN (18:21)
[2017-01-07] MEDS ORDERED: BISACODYL 10 MG SUPP PR ONE (18:21)
[2017-01-07] MEDS: ACETAMINOPHEN 325 MG TAB PO PRN (20:29)
[2017-01-08] MEDS: metFORMIN HCL 500 MG TAB PO SCH ×2 (07:37→17:57)
[2017-01-08] MEDS: DOCUSATE SODIUM 100 MG CAP PO SCH ×2 (09:51→21:27)
[2017-01-08] MEDS: GLIMEPIRIDE 2 MG TAB PO SCH (09:52)
[2017-01-08] MEDS: MAGNESIUM OXIDE 400 MG TAB PO SCH (09:52)
[2017-01-08] MEDS: DABIGATRAN ETEXILATE MESYL 150 MG CAP PO SCH ×2 (09:53→21:27)
[2017-01-08] MEDS: DIGOXIN 250 MCG TAB PO SCH (09:53)
[2017-01-08] MEDS: FUROSEMIDE 20 MG TAB PO SCH (09:54)
[2017-01-08] MEDS: LISINOPRIL 5 MG TAB PO SCH (09:54)
[2017-01-08] MEDS: DILTIAZEM XR 240 MG CAP PO SCH (09:55)
[2017-01-08] MEDS: AZELASTINE NASAL MDI EACHNARE SCH ×2 (09:56→21:27)
[2017-01-08] MEDS: Ketotifen Fumarate [Zaditor] 1 DROP EACHEYE SCH ×2 (09:59→19:13)
[2017-01-08] MEDS: Linaclotide [Linzess] 145 MCG PO SCH (09:59)
[2017-01-08] MEDS: POTASSIUM CL 20 MEQ TAB PO SCH (10:01)
[2017-01-08] MEDS: ACETAMINOPHEN 325 MG TAB PO PRN ×2 (10:07→16:34)
[2017-01-08] MEDS ORDERED: BISACODYL 10 MG SUPP PR ONE (10:34)
--- NOTE | 2017-01-08 11:47 | ASMTCMCOM ---
CM Note CM Note Notes: Per hospitalist, patient has ileus on X-ray. Will treat aggressively today in order to discharge tomorrow. I spoke with patient's son Baljeet who confirms that everything is in place for patient to return home to the [facility] tomorrow. [facility] will follow here there, and [facility] will provide 24 hours care. I spoke with Suellen from [employer] to reserve wheelchair van transport for 1200 tomorrow. Baljeet will [facility] to arrange payment. CM will coordinate all of this in the morning, pending patient's medical readiness. [facility] Date Signed: 01/08/2017 11:46 AM Electronically Signed By:Meghna Ayers RN
--- NOTE | 2017-01-08 11:47 | ASMTCMCOM ---
CM Note CM Note Notes: Per hospitalist, patient has ileus on X-ray. Will treat aggressively today in order to discharge tomorrow. I spoke with patient's son Baljeet who confirms that everything is in place for patient to return home to the [facility] tomorrow. [facility] will follow here there, and [facility] will provide 24 hours care. I spoke with Suellen from [employer] to reserve wheelchair van transport for 1200 tomorrow. [facility]. CM will coordinate all of this in the morning, pending patient's medical readiness. [facility] Date Signed: 01/08/2017 11:46 AM Electronically Signed By:Meghna Ayers RN
--- NOTE | 2017-01-08 11:47 | ASMTCMCOM ---
CM Note CM Note Notes: Per hospitalist, patient has ileus on X-ray. Will treat aggressively today in order to discharge tomorrow. I spoke with patient's son Baljeet who confirms that everything is in place for patient to return home to the [facility] tomorrow. [facility] will follow here there, and [facility] will provide 24 hours care. I spoke with Suellen from [employer] to reserve wheelchair van transport for 1200 tomorrow. [facility]. CM will coordinate all of this in the morning, pending patient's medical readiness. [facility] Date Signed: 01/08/2017 11:46 AM Electronically Signed By:Meghna Ayers RN
--- NOTE | 2017-01-08 12:08 | HOSPPROG ---
Hospitalist Progress Note Assessment/Plan: 89y female with fall. DW RN and CM. #Mechanical fall uses walker #Elbow fx splint repeat xray 7-10 days #Hypoxemia acute on chronic cont supplemental o2 CXR personally reviewed, no signs of infection #Afib rate stable cont anticoagulation Should consider DC given increase fall risk #Ileus per xray enema and supp #DM II follow #Abdominal distention +BM less today cont aggressive bowel therapy no tenderness #Anemia no intervention no signs of bleeding #Dispo pt from [facility] plan to start Hospice January 09 will arrange DC plan DW CHERYL DC in am with 24 hour care and Hospice Subjective: No issues. Tired wants to rest. Objective: Vital Signs Temp Pulse Resp BP Pulse Ox 36.8 C 90 16 113/64 93 01/08/17 08:00 01/08/17 09:55 01/08/17 08:00 01/08/17 09:55 01/08/17 08:00 Laboratory Results 01/06/17 04:34 01/06/17 04:34 01/07/17 01/08/17 01/09/17 05:59 05:59 05:59 Intake Total 1100 Output Total 1500 Balance -400 PT 21.1 SEC (12.0-15.0) H 01/05/17 18:08 INR 1.81 (0.83-1.16) H 01/05/17 18:08 - Physical Exam Constitutional: not in pain, chronically ill appearing Eyes: PERRL, anicteric sclera Ears, Nose, Mouth, Throat: moist mucous membranes, ears appear normal Cardiovascular: No JVD, No edema Respiratory: no respiratory distress, reduced air movement Gastrointestinal: normoactive bowel sounds, distension, No tenderness Skin: warm, normal color Musculoskeletal: no joint effusions, pain with ROM, generalized weakness Psychiatric: not anxious, not encephalopathic, poor insight, poor judgement, poor memory ICD10 Worksheet Patient Problems: Problems Problem Status Onset Venous stasis ulcer of lower extremity Chronic Sepsis Acute Acute respiratory failure Acute Elbow fracture, left Acute
[2017-01-08] MEDS: CETIRIZINE 10 MG TAB PO SCH (16:34)
[2017-01-08] MEDS: Mirabegron [Myrbetriq] 50 MG PO SCH (17:08)
[2017-01-08 23:09] VITALS: BP 122/67; O2SAT 92
[2017-01-09 07:24] VITALS: PULSE 92; RESP 16; TEMP 98.6
[2017-01-09] MEDS: LISINOPRIL 5 MG TAB PO SCH (08:54)
[2017-01-09] MEDS: DOCUSATE SODIUM 100 MG CAP PO SCH (08:54)
[2017-01-09] MEDS: metFORMIN HCL 500 MG TAB PO SCH (08:54)
[2017-01-09] MEDS: ASPIRIN EC 81 MG TAB PO SCH (08:54)
[2017-01-09] MEDS: FUROSEMIDE 20 MG TAB PO SCH (08:55)
[2017-01-09] MEDS: GLIMEPIRIDE 2 MG TAB PO SCH (08:55)
[2017-01-09] MEDS: MAGNESIUM OXIDE 400 MG TAB PO SCH (08:55)
[2017-01-09] MEDS: DABIGATRAN ETEXILATE MESYL 150 MG CAP PO SCH (08:55)
[2017-01-09] MEDS: DIGOXIN 250 MCG TAB PO SCH (08:56)
[2017-01-09] MEDS: DILTIAZEM XR 240 MG CAP PO SCH (08:56)
[2017-01-09] MEDS: AZELASTINE NASAL MDI EACHNARE SCH (09:41)
[2017-01-09] MEDS: Ketotifen Fumarate [Zaditor] 1 DROP EACHEYE SCH (09:41)
[2017-01-09] MEDS: Linaclotide [Linzess] 145 MCG PO SCH (09:41)
--- NOTE | 2017-01-09 11:17 | HOSPPROG ---
Hospitalist Progress Note Assessment/Plan: 89y female with fall. DW RN and CM. #Mechanical fall, patient believes that she tripped and did not have a syncopal episode uses walker #Elbow fx splint/will ask orthopedics to evaluate before dc she will need f/u with them #Hypoxemia acute on chronic/on 4 liters cont supplemental o2 CXR personally reviewed, no signs of infection patient states she had been on O2 in the past/ but this was stopped #Atrial fibrillation on OAC #DM II follow/on Januvia # ileus with associated abdominal distention +BM less today cont aggressive bowel therapy has good bowel sounds #Anemia no signs of bleeding #Dispo: pending/ RN spoke with patient's son, he would like her back to the [facility] with 24 hour care/ will ask orthopedics to see prior to dc/ then hopefully dc later today Subjective: Glenis has no specific complaints. Objective: Vital Signs Temp Pulse Resp BP Pulse Ox 37.0 C 92 16 122/67 H 92 01/09/17 07:23 01/09/17 08:56 01/09/17 07:23 01/09/17 08:56 01/09/17 07:23 Laboratory Results 01/06/17 04:34 01/06/17 04:34 01/08/17 01/09/17 01/10/17 05:59 05:59 05:59 Intake Total 200 Balance 200 PT 21.1 SEC (12.0-15.0) H 01/05/17 18:08 INR 1.81 (0.83-1.16) H 01/05/17 18:08 - Physical Exam Constitutional: no apparent distress, not in pain, chronically ill appearing Eyes: PERRL Ears, Nose, Mouth, Throat: hearing normal Cardiovascular: regular rate and rhythym Respiratory: no respiratory distress Gastrointestinal: normoactive bowel sounds, distension Skin: warm, No normal color (pale) Musculoskeletal: generalized weakness Neurologic: AAOx3 Psychiatric: interacting appropriately ICD10 Worksheet Patient Problems: Problems Problem Status Onset Elbow fracture, left Acute Acute respiratory failure Acute Sepsis Acute Venous stasis ulcer of lower extremity Chronic
--- NOTE | 2017-01-09 13:39 | GCON ---
[f rep st] CONSULTATION ORTHOPEDIC CONSULTATION DATE OF CONSULTATION: 01/09/2017 CHIEF COMPLAINT: Left elbow and shoulder pain. HISTORY OF PRESENT ILLNESS: The patient is a 89 year-old woman who fell at her place of residence, the [facility]. She usually uses a walker. She stumbled. She struck her elbow and shoulder. She was seen in the emergency room and admitted to the hospitalist. PAST MEDICAL HISTORY: As previously recorded by the hospitalist. PHYSICAL EXAM: GENERAL: Patient is alert, oriented, and cooperative with the exam. EXTREMITIES: She is able to move the shoulder, but has some discomfort and crepitus felt in the subacromial area. Weakness to abduction, forward flexion. Elbow has tenderness laterally. There is mild swelling. She is able flex, extend the fingers and wrist, with normal strength. Pulses 1+ radial and ulnar. Sensation is intact to all dermatomes. X-ray show a nondisplaced fracture of the radial head. X-rays also show severe rotator cuff tear arthropathy. The humeral head articulates with the subacromial space. No fracture seen in the shoulder. ASSESSMENT: 1. Left radial head fracture. Will be treated nonoperatively with compression and sling. She can work gentle range of motion. 2. Chronic rotator cuff tear arthropathy, left shoulder, that will likely become less symptomatic with time. No surgical treatment is recommended. If she has significant pain that is persistent in the shoulder, a subacromial injection may help. We will determine this in followup. I anticipate seeing patient in 3 weeks for x-rays on her elbow and follow up on the shoulder. /[id number]/MODL MTDD
--- NOTE | 2017-01-09 14:13 | PDIAF ---
- Diagnosis Diagnosis: Left radial head fx/ chronic rotator cuff arthropathy Code Status: Do Not Resuscitate - Medication Management Discharge Medications: Medications to Continue on Transfer Ascorbic Acid [Vitamin C 500 mg (*)] 500 mg PO HS 04/17/13 [Last Taken 01/04/17] Aspirin EC [Aspirin EC 81 mg (*)] 81 mg PO Q2D@04/17/13 [Last Taken 01/04/17] Calcium Carbonate [CALCIUM CARBONATE] 1,000 mg PO BID@04/17/13 [Last Taken 01/05/17 09:00] Dabigatran Etexilate Mesyl [Pradaxa 150 MG (*)] 150 mg PO BID 04/17/13 [Last Taken 01/05/17 09:00] Docusate Sodium [Colace 100 MG (*)] 100 mg PO BID 04/17/13 [Last Taken 01/05/17 09:00] Ketotifen Fumarate [Zaditor] 1 drop EACHEYE BID 04/17/13 [Last Taken 01/05/17 09 :00] Linaclotide [Linzess] 145 mcg PO DAILY 04/17/13 [Last Taken 01/05/17] Magnesium Oxide 250 mg PO DAILY 04/17/13 [Last Taken 01/05/17] Multivitamins [Multivitamin (*)] 1 each PO DAILY@04/17/13 [Last Taken ] metFORMIN HCL [Glucophage 500 mg (*)] 1,000 mg PO BIDMEAL 04/17/13 [Last Taken 01/05/17 09:00] Cholecalciferol Vit D3 [Vitamin D3 (*)] 1,000 units PO HS 12/11/13 [Last Taken 01/04/17] Clobetasol 0.05% [Temovate Cream] 1 esha TP BID PRN 12/11/13 [Last Taken Unknown] DILTIAZEM HCL [DILTIAZEM 24HR ER] 240 mg PO DAILY 12/11/13 [Last Taken 01/05/17] Digoxin [Lanoxin 0.25 mg] 0.25 mg PO DAILY 12/11/13 [Last Taken 01/05/17] Lisinopril [Zestril 2.5 mg (*)] 2.5 mg PO DAILY 12/11/13 [Last Taken 01/05/17] Loratadine [Claritin 10 mg] 10 mg PO DAILY@17 12/11/13 [Last Taken 01/04/17] Furosemide [Lasix 20 MG (*)] 20 mg PO DAILY #0 tab 12/21/13 [Last Taken 01/05/17 ] Acetaminophen [Tylenol ES 500 mg (*)] 1,000 mg PO Q6 PRN 01/05/17 [Last Taken Unknown] Azelastine [Astelin] 1 sprays EACHNARE BID 01/05/17 [Last Taken 01/05/17 09:00] Glimepiride 4 mg PO DAILY 01/05/17 [Last Taken 01/05/17] Mirabegron [Myrbetriq] 50 mg PO DAILY@01/05/17 [Last Taken 01/04/17] Potassium Cl [Klor-Con 20 meq (*)] 20 meq PO DAILY 01/05/17 [Last Taken 01/05/17 ] Triamcinolone 0.1% [Triamcinolone 0.1% Cream] 1 esha TP BID PRN 01/05/17 [Last Taken Unknown] sitaGLIPtin PHOSPHATE [Januvia 100 MG (*)] 100 mg PO DAILY 01/05/17 [Last Taken 01/05/17] Discharge Medications: Refer to the Discharge Home Medication list for PRN reason. - Orders Services needed: Home Care, Registered Nurse Home Care Face to Face: I certify that this patient was under my care and that I had the required [id number] encounter meeting the encounter requirements on the discharge day. My findings support the fact that the patient is homebound as defined in Home Care Face to Face Continued: CMS Chapter 7 Medicare Benefits Manual 30.1.1 , The condition of the patient is such that there exists a normal inability to leave home and consequently, leaving home would require a considerable and taxing effort. Diet Recommendation: no restrictions on diet Diet Texture: Regular Texture Diet Activity/Weight Bearing Restrictions: gentle range of motion w left arm Equipment: keep left arm in sling Additional: see Dr Barton in 3 weeks for further xrays - Follow Up Care Current Providers and Referrals: Patient,NotPresent [Primary Care Provider] - As per Instructions Wade Barton MD [Medical Doctor] -
[2017-01-09] MEDS: POTASSIUM CL 20 MEQ TAB PO SCH (15:32)
--- NOTE | 2017-01-09 15:45 | ASMTCMCOM ---
CM Note CM Note Notes: Pt not ready for d/c by noon today, [employer] cancelled earlier this am. Ortho consult recommends no surgery. Pt medically stable for d/c back to the [facility] providing / care and [facility]. Zoey Pozo able to transport at 1500 and bill pt. Updated Trent [facility] and Denita woo [facility] updated. VMs left for carmine Johansen and [place]. VM left for [facility] staff. Orders sent in Allscripts to [facility] and [facility]. Date Signed: 01/09/2017 03:44 PM Electronically Signed By:HERNANDO Armstrong
--- NOTE | 2017-01-09 15:45 | ASMTCMCOM ---
CM Note CM Note Notes: Pt not ready for d/c by noon today, [employer] cancelled earlier this am. Ortho consult recommends no surgery. Pt medically stable for d/c back to the [facility] providing / care and [facility]. Zoey Pozo able to transport at 1500 and bill pt. Updated Trent [facility]oo [facility] and Denita woo [facility] updated. VMs left for carmine Johansen and [place]. VM left for [facility] staff. Orders sent in Allscripts to [facility] and [facility]. Date Signed: 01/09/2017 03:44 PM Electronically Signed By:HERNANDO Armstrong
--- NOTE | 2017-01-09 15:45 | ASMTCMCOM ---
CM Note CM Note Notes: Pt not ready for d/c by noon today, [employer] cancelled earlier this am. Ortho consult recommends no surgery. Pt medically stable for d/c back to the [facility] providing / care and [facility]. Zoey Pozo able to transport at 1500 and bill pt. Updated Trent woo [facility] and Denita woo [facility] updated. VMs left for carmine Johansen and [place]. VM left for [facility] staff. Orders sent in Allscripts to [facility] and [facility]. Date Signed: 01/09/2017 03:44 PM Electronically Signed By:HERNANDO Armstrong
--- NOTE | 2017-01-09 15:46 | ASDISCHSUM ---
Discharge Information Plan Status:Hospice-Home Medically Cleared to Leave: Discharge Date:01/09/2017 03:25 PM D/C Disposition:Hospice Home ADT D/C Disposition:Home, Routine, Self-Care Projected Discharge Date:01/09/2017 11:00 AM Transportation at D/C:Wheelchair Van Discharge Delay Reason: Follow-Up Date:01/09/2017 11:00 AM Discharge Slot: Final Diagnosis: Placement Information Referral Type:*Hospice Referral ID:[id number] Provider Name:[facility] Address 1:[address] Phone Number: Address 2: Fax Number: [facility]:[place] Selection Factors: State:[place] Referral Type:Assisted Living Residence Referral ID:[id number] Provider Name:[facility] Address 1:[address] Phone Number: Address 2: Fax Number: [facility]:[place] Selection Factors: State:[place] Patient Contact Information Contact Name:ISAIAH Relationship:Son Address: Work Phone: City: [facility] Phone: State/Zip Code: Email: Financial Information Financial Class: Primary Plan Desc:MEDICARE INPATIENT Primary Plan Number:[id number] Secondary Plan Desc: Secondary Plan Number: Assessment Information LACE LACE Length of stay for Answers: 1 day current admission Acuity / Level of Care Answers: Was the patient admitted to hospital via the emergency department? Yes: Comorbidities - select Answers: Cerebrovascular disease all that apply Diabetes without complications Emergency dept visits in Answers: 2 last 6 months Score: 8 Date Signed: 01/06/2017 01:42 PM Electronically Signed By:Marlene Flores RN [facility] CM Progress Note CM Note CM Note Notes: Pt admitted w/elbow fracture. She lives at [facility]. Was recently a pt with [facility], came off and is scheduled to start back up with Jenna. Discussed w/pt's so, Baljeet([phone])- her MDPOA and he confirmed the plan for Hospice to start back up when she returns to [facility]. Spoke w/Denita from [facility] and they are ready to start service with her. She said they do not need to re-eval here at the hospital and they could see her at [facility] whenever she dc's whether that is tomorrow or saturday. Referral sent to [facility]. He [facility] also [facility] which [facility]jeet said would be able to start this saturday. I explained to him that she may be ready for dc tomorrow but he did not seem to think the 24 hr care could start tomorrow. Also spoke w/MICHAEL Mendez at [facility]; they are fine to accept her back but 24 hr care must be in place. They do manage her meds so will need dc med list which they said must be physically signed. Their fax is [phone]. D/W Hospitalist and RN. CHERYL w/f. Date Signed: 01/07/2017 04:19 PM Electronically Signed By:Raven Warren RN [facility] CM Progress Note CM Note CM Note Notes: Per hospitalist, patient has ileus on X-ray. Will treat aggressively today in order to discharge tomorrow. I spoke with patient's son Baljeet who confirms that everything is in place for patient to return home to the [facility] tomorrow. [facility], and [facility]. I spoke with Suellen from [employer] to reserve wheelchair van transport for 1200 tomorrow. Baljeet will call Suellen to arrange payment. CM will coordinate all of this in the morning, pending patient's medical readiness. Current CM Discharge Plan: Ran [facility] with [facility] Date Signed: 01/08/2017 11:46 AM Electronically Signed By:Meghna Ayers RN [facility] Progress Note CM Note CM Note Notes: Pt not ready for d/c by noon today, [employer] cancelled earlier this am. Ortho consult recommends no surgery. Pt medically stable for d/c back to the [facility] providing 24/7 care and [facility]. [place] able to transport at 1500 and bill pt. Updated Trent woo [facility]. VMs left for carmine Johansen and [place]. VM left for [facility] staff. Orders sent in Allscripts to [facility] and [facility]. Date Signed: 01/09/2017 03:44 PM Electronically Signed By:HERNANDO Armstrong Intervention Information
--- NOTE | 2017-01-09 15:46 | ASDISCHSUM ---
Discharge Information Plan Status:Hospice-Home Medically Cleared to Leave: Discharge Date:01/09/2017 03:25 PM D/C Disposition:Hospice Home ADT D/C Disposition:Home, Routine, Self-Care Projected Discharge Date:01/09/2017 11:00 AM Transportation at D/C:Wheelchair Van Discharge Delay Reason: Follow-Up Date:01/09/2017 11:00 AM Discharge Slot: Final Diagnosis: Placement Information Referral Type:*Hospice Referral ID:[id number] Provider Name:[facility] Address 1:[address] Phone Number: Address 2: Fax Number: [facility]:[place] Selection Factors: State:[place] Referral Type:Assisted Living Residence Referral ID:[id number] Provider Name:[facility] Address 1:[address] Phone Number: Address 2: Fax Number: [facility]:[place] Selection Factors: State:[place] Patient Contact Information Contact Name:ISAIAH Relationship:Son Address: Work Phone: City: [facility] Phone: State/Zip Code: Email: Financial Information Financial Class: Primary Plan Desc:MEDICARE INPATIENT Primary Plan Number:[id number] Secondary Plan Desc: Secondary Plan Number: Assessment Information LACE LACE Length of stay for Answers: 1 day current admission Acuity / Level of Care Answers: Was the patient admitted to hospital via the emergency department? Yes: Comorbidities - select Answers: Cerebrovascular disease all that apply Diabetes without complications Emergency dept visits in Answers: 2 last 6 months Score: 8 Date Signed: 01/06/2017 01:42 PM Electronically Signed By:Marlene Flores RN [facility] CM Progress Note CM Note CM Note Notes: Pt admitted w/elbow fracture. She lives at [facility]. Was recently a pt with [facility], came off and is scheduled to start back up with Jenna. Discussed w/pt's so, Baljeet([phone])- her MDPOA and he confirmed the plan for Hospice to start back up when she returns to [facility]. Spoke w/Denita from [facility] and they are ready to start service with her. She said they do not need to re-eval here at the hospital and they could see her at The [facility] whenever she dc's whether that is tomorrow or saturday. Referral sent to [facility]. He is also [facility] which Baljeet said would be able to start this saturday. I explained to him that she may be ready for dc tomorrow but he did not seem to think the 24 hr care could start tomorrow. Also spoke w/MICHAEL Mendez at [facility]; they are fine to accept her back but 24 hr care must be in place. They do manage her meds so will need dc med list which they said must be physically signed. Their fax is [phone]. D/W Hospitalist and RN. CHERYL w/f. Date Signed: 01/07/2017 04:19 PM Electronically Signed By:Raven Warren RN [facility] CM Progress Note CM Note CM Note Notes: Per hospitalist, patient has ileus on X-ray. Will treat aggressively today in order to discharge tomorrow. I spoke with patient's son Baljeet who confirms that everything is in place for patient to return home to the [facility] tomorrow. [facility] follow [facility], [facility]. I spoke with Suellen from [employer] to reserve wheelchair van transport for 1200 tomorrow. Baljeet will call Suellen to arrange payment. CM will coordinate all of this in the morning, pending patient's medical readiness. Current CM Discharge Plan: Ran [facility] with [facility] and [facility] Date Signed: 01/08/2017 11:46 AM Electronically Signed By:Meghna Ayers RN [facility] Progress Note CM Note CM Note Notes: Pt not ready for d/c by noon today, [employer] [facility] cancelled earlier this am. Ortho consult recommends no surgery. Pt medically stable for d/c back to the [facility] providing 24/7 care and [facility]. [place] able to transport at 1500 and bill pt. Updated Trent woo [facility]. VMs left for carmine Johansen and [place]. VM left for [facility] staff. Orders sent in Allscripts to [facility] and [facility]. Date Signed: 01/09/2017 03:44 PM Electronically Signed By:HERNANDO Armstrong Intervention Information
--- NOTE | 2017-01-09 15:46 | ASDISCHSUM ---
Discharge Information Plan Status:Hospice-Home Medically Cleared to Leave: Discharge Date:01/09/2017 03:25 PM D/C Disposition:Hospice Home ADT D/C Disposition:Home, Routine, Self-Care Projected Discharge Date:01/09/2017 11:00 AM Transportation at D/C:Wheelchair Van Discharge Delay Reason: Follow-Up Date:01/09/2017 11:00 AM Discharge Slot: Final Diagnosis: Placement Information Referral Type:*Hospice Referral ID:[id number] Provider Name:[facility] Address 1:[address] Phone Number: Address 2: Fax Number: [facility]:[place] Selection Factors: State:[place] Referral Type:Assisted Living Residence Referral ID:[id number] Provider Name:[facility] Address 1:[address] Phone Number: Address 2: Fax Number: [facility]:[place] Selection Factors: State:[place] Patient Contact Information Contact Name:ISAIAH Relationship:Son Address: Work Phone: City: [facility] Phone: State/Zip Code: Email: Financial Information Financial Class: Primary Plan Desc:MEDICARE INPATIENT Primary Plan Number:[id number] Secondary Plan Desc: Secondary Plan Number: Assessment Information LACE LACE Length of stay for Answers: 1 day current admission Acuity / Level of Care Answers: Was the patient admitted to hospital via the emergency department? Yes: Comorbidities - select Answers: Cerebrovascular disease all that apply Diabetes without complications Emergency dept visits in Answers: 2 last 6 months Score: 8 Date Signed: 01/06/2017 01:42 PM Electronically Signed By:Marlene Flores RN [facility] CM Progress Note CM Note CM Note Notes: Pt admitted w/elbow fracture. She lives at [facility]. Was recently a pt with [facility], came off and is scheduled to start back up with Jenna. Discussed w/pt's so, Baljeet([phone])- her MDPOA and he confirmed the plan for Hospice to start back up when she returns to [facility]. Spoke w/Denita from [facility] and they are ready to start service with her. She said they do not need to re-eval here at the hospital and they could see her at [facility] whenever she dc's whether that is tomorrow or saturday. Referral sent to [facility]. He is also arranging 24 hr care through [facility] which Baljeet said would be able to start this saturday. I explained to him that she may be ready for dc tomorrow but he did not seem to think the 24 hr care could start tomorrow. Also spoke w/MICHAEL Mendez at [facility]; they are fine to accept her back but [address] care must be in place. They do manage her meds so will need dc med list which they said must be physically signed. Their fax is [phone]. D/W Hospitalist and RN. CHERYL w/f. Date Signed: 01/07/2017 04:19 PM Electronically Signed By:Raven Warren RN [facility] CM Progress Note CM Note CM Note Notes: Per hospitalist, patient has ileus on X-ray. Will treat aggressively today in order to discharge tomorrow. I spoke with patient's son Baljeet who confirms that everything is in place for patient to return home to the [facility] tomorrow. [facility] will follow here there, and [facility] will provide 24 hours care. I spoke with Suellen from [employer] to reserve wheelchair van transport for 1200 tomorrow. Baljeet will call Suellen to arrange payment. CM will coordinate all of this in the morning, pending patient's medical readiness. Current CM Discharge Plan: [facility] with [facility] and 24/7 care with [facility] Date Signed: 01/08/2017 11:46 AM Electronically Signed By:Meghna Ayers RN [facility] Progress Note CM Note CM Note Notes: Pt not ready for d/c by noon today, [employer] [facility] cancelled earlier this am. Ortho consult recommends no surgery. Pt medically stable for d/c back to the [facility] providing 24/7 care and [facility]. [place] able to transport at 1500 and bill pt. Updated Trent [facility]oo [facility] VMs left for carmine Johansen and [place]. VM left for [facility] staff. Orders sent in [employer] to [facility] and [facility]. Date Signed: 01/09/2017 03:44 PM Electronically Signed By:HERNANDO Armstrong Intervention Information
--- NOTE | 2017-01-09 16:15 | ASMTCMCOM ---
CM Note CM Note Notes: Pt son Eleno called back, this CM updated him and gave him Trent's ph number w [facility]. Date Signed: 01/09/2017 04:15 PM Electronically Signed By:HERNANDO Armstrong
--- NOTE | 2017-01-09 16:15 | ASMTCMCOM ---
CM Note CM Note Notes: Pt son Eleno called back, this CM updated him and gave him Trent's ph number w [facility]. Date Signed: 01/09/2017 04:15 PM Electronically Signed By:HERNANDO Armstrong
--- NOTE | 2017-01-09 16:15 | ASMTCMCOM ---
CM Note CM Note Notes: Pt son Eleno called back, this CM updated him and gave him Trent's ph number w [facility]. Date Signed: 01/09/2017 04:15 PM Electronically Signed By:HERNANDO Armstrong
--- NOTE | 2017-01-09 16:23 | ASMTCMCOM ---
CM Note CM Note Notes: Ran reports they did not receive All[employer] alert, paper faxed meds/orders to [phone] Date Signed: 01/09/2017 04:23 PM Electronically Signed By:HERNANDO Armstrong
--- NOTE | 2017-01-09 16:23 | ASMTCMCOM ---
CM Note CM Note Notes: Ran reports they did not receive [employer] alert, paper faxed meds/orders to [phone] Date Signed: 01/09/2017 04:23 PM Electronically Signed By:HERNANDO Armstrong
--- NOTE | 2017-01-09 16:23 | ASMTCMCOM ---
CM Note CM Note Notes: Ran reports they did not receive Allscripts alert, paper faxed meds/orders to [phone] Date Signed: 01/09/2017 04:23 PM Electronically Signed By:HERNANDO Armstrong
--- NOTE | 2017-01-09 18:05 | GDS ---
[f rep st] DISCHARGE SUMMARY DISCHARGE DIAGNOSES: 1. Mechanical fall. 2. Elbow fracture. 3. Hypoxemia. 4. Atrial fibrillation. 5. Diabetes, type 2. 6. Ileus with associated abdominal distention. 7. Anemia. CONSULTATION DURING STAY: Wade Barton MD HISTORY: Briefly, the patient is an 89-year-old female with history of atrial fibrillation, type 2 d iabetes, and history of a CVA. She lives at [facility]. She usually uses a walker to ambulate. S he fell 2 days prior to her admission and had significant pain in her shoulder and elbow. She had an elbow x-ray, which showed a radial head fracture. She was seen and evaluated by Dr. Barton during he r stay. He noted, in addition to her left radial head fracture, she had a chronic rotator cuff tear arthropathy. His recommendation is to treat her non-operatively with compression and sling and work on gentle range of motion. She will follow up with him in the outpatient setting. HOSPITAL COURSE PER PROBLEM: 1. Mechanical fall: She believes that she tripped and did not have a syncopal episode. She, at her baseline, uses a walker, and the family has provided 24-hour care for her, especially in the setting of an elbow fracture. 2. Elbow fracture: She has a splint in place. She can do gentle range of motion. She will follow up within 3 weeks. 3. Hypoxemia: This is acute on chronic. Chest x-ray was reviewed. She has no signs of infection. 4. Atrial fibrillation, on oral anticoagulation. 5. Diabetes, type 2. She is on Januvia. 6. Ileus, resolved. She has good bowel sounds and is having regular bowel movements. 7. Anemia. No signs of bleeding. DISCHARGE CONDITION: Stable. VITAL SIGNS: Blood pressure is 122/67, heart rate is 92, respiratory rate is 16, O2 sat's on 4 L are 94%, temperature is 37 degrees Celsius. MEDICATIONS AT DISCHARGE: Please see the EMR. DISCHARGE INSTRUCTIONS: 1. Care per hospice. 2. To follow up with her primary care provider. She is on aspirin, as well as Pradaxa. 3. If she develops fever, chills, chest pain, or shortness of breath, return to the ER if the family would like further care. 4. Follow up with Dr. Barton in 3 weeks. TIME SPENT: Greater than 30 minutes discharging and coordinating her care. /[id number]/MODL
== END 2017-01-09 15:25 | disposition home or self-care (01) | DRG 563 ==
LOC: EDUNIT# → F3N 20:21
PROVIDERS: ADMIT Internal Medicine; ATTEND Internal Medicine
DX: S52.125A Nondisplaced fracture of head of left radius, initial encounter for closed fracture (principal); W19.XXXA Unspecified fall, initial encounter; Y92.098 Other place in other non-institutional residence as the place of occurrence of the external cause; M75.102 Unspecified rotator cuff tear or rupture of left shoulder, not specified as traumatic; K56.7 Ileus, unspecified; I48.91 Unspecified atrial fibrillation; I10 Essential (primary) hypertension; E11.9 Type 2 diabetes mellitus without complications; E78.5 Hyperlipidemia, unspecified; R09.02 Hypoxemia; D64.9 Anemia, unspecified; Z95.0 Presence of cardiac pacemaker; Z86.73 Personal history of transient ischemic attack (TIA), and cerebral infarction without residual deficits; Z79.01 Long term (current) use of anticoagulants; Z66 Do not resuscitate
CPT/HCPCS: 97110-GP; 97116-GP; 97162-GP; 97166-GO; 97530-GO; 97530-GP; G8978-GP-CM; G8979-GP-CK; G8987-GO-CM; G8988-GO-CK